=== PATIENT | male | born 1995 | race Caucasian/White ===

== ENCOUNTER 2017-02-21 08:26 | Emergency (ER) | payer SELFPAY ==
[2017-02-21 08:33] VITALS: BP 128/75; PULSE 70; TEMP 98; BMI 25.2
[2017-02-21] MEDS ORDERED: FLUORESCEIN NA 1 EA STRIP ONE (09:31)
--- NOTE | 2017-02-21 09:48 | PDOC ---
History of Present Illness - General Chief Complaint: Eye Problem Stated Complaint: EYE PROBLEM Time Seen by Provider: 02/21/17 08:51 History Source: Patient Exam Limitations: No Limitations - History of Present Illness Initial Comments: 02/21/17 09:44 21 yr old male presents to the emergency room with complaints of left eye pain and swelling upon awakening this morning. Patient states yesterday he felt as if something was in his eyes a started to rub the area. This morning awoke and unable to open his eyes for decided come to the ER. Patient denies I contact lens usage, foreign body in the eye, history of eye problems, or retro-orbital discomfort. Timing/Duration: 24 hours Severity: moderate Associated Symptoms: reports: denies symptoms Past History - Travel Traveled outside of the country in the last 30 days: No Close contact w/someone who was outside of country & ill: No - Past Medical History Allergies/Adverse Reactions: Allergies Allergy/AdvReac Type Severity Reaction Status Date / Time No Known Allergies Allergy Verified 02/21/17 08:30 Home Medications: Ambulatory Orders Diphenhydramine [Benadryl -] 50 mg PO BID #6 capsule 02/21/17 Moxifloxacin HCl [Vigamox 0.5% Eye Drops -] 1 drop OS ASDIR #1 bottle 02/21/17 Other medical history: none - Psycho/Social/Smoking Cessation Hx Anxiety: No Suicidal Ideation: No Smoking History: Never smoked Have you smoked in the past 12 months: No Information on smoking cessation initiated: No Hx Alcohol Use: No Drug/Substance Use Hx: No Substance Use Type: None Patient Lives Alone: No Review of Systems - Review of Systems Able to Perform ROS?: Yes Constitutional: No: Symptoms Reported HEENTM: Yes: Eye Pain, Blurred Vision, Recent change in vision Integumentary: Yes: Erythema, Other (swelling of left eye) Neurological: No: Headache, Dizziness *Physical Exam - Vital Signs Last Vital Signs Temp Pulse Resp BP Pulse Ox 98.0 F 70 18 128/75 100 02/21/17 08:31 02/21/17 08:31 02/21/17 08:31 02/21/17 08:31 02/21/17 08:31 - Physical Exam General Appearance: Yes: Nourished, Appropriately Dressed. No: Apparent Distress HEENT: positive: Other (Left eye with scleral erythema without subconjunctival hemorrhage. Upper and lower eyelids edematous. Patient with excessive tearing. Approximately 0.75 circular raised area over the left lens containing purulent drainage. ) Integumentary: positive: Erythema (left eyelid), Swelling Medical Decision Making - Medical Decision Making 02/21/17 09:50 Patient presents here with complaints of left eye pain and inability to open the eye. On exam patient with noted raised ulceration containing purulent drainage over the left eye lens. Upon staining with fluorescein after placing tetracaine drops , area absorbed the stain and began to drain a purulent fluid. Case discussed with Dr. Hanson pie crimping machine operator on-call for [facility] who recommended irrigating with saline then dilate eye with mydriacil. Then discharge home with either Vigamox or Ocuflox drops along with Benadryl for allergic response of eyelids. He recommends patient to follow-up in the office tomorrow. *DC/Admit/Observation/Transfer Diagnosis at time of Disposition: Central corneal ulcer, left eye - Discharge Dispostion Disposition: HOME Condition at time of disposition: Good - Prescriptions Prescriptions: Diphenhydramine [Benadryl -] 50 mg PO BID #6 capsule Moxifloxacin HCl [Vigamox 0.5% Eye Drops -] 1 drop OS ASDIR #1 bottle - Referrals Referrals: Denny Hanson [Staff Physician] - - Patient Instructions Printed Discharge Instructions: DI for Eye Pain Additional Instructions: Please use eyedrops as recommended. Please follow up with referred pie crimping machine operator and please take Benadryl as ordered. Wear sunglasses to avoid direct sun.
[2017-02-21] MEDS ORDERED: TROPICAMIDE 1% OPHTH SOLN 15 ML BOTTLE OS ONE (09:57)
[2017-02-21] MEDS ORDERED: FLUORESCEIN NA 1 EA STRIP OS ONE (09:58)
== END 2017-02-21 10:13 | disposition home or self-care (01) ==
LOC: JERFT 08:26
DX: H16.012 Central corneal ulcer, left eye (principal)
CPT/HCPCS: 99281-25